=== PATIENT | male | born 1985 | race Caucasian/White ===

== ENCOUNTER 2019-12-23 11:51 | Emergency (ER) | payer SELFPAY ==
[2019-12-23 12:03] VITALS: BP 139/96; PULSE 93; TEMP 98.4; BMI 26.6
[2019-12-23] MEDS ORDERED: DIPHTH,PERTUSS(ACELL),TET 0.5 ML DISP.SYRIN IM ONE ×2 (12:53→19:02)
--- NOTE | 2019-12-23 12:53 | PDOC ---
History of Present Illness - General Chief Complaint: Injury Stated Complaint: LACERATION NOSE History Source: Patient Exam Limitations: No Limitations - History of Present Illness Initial Comments: 12/23/19 12:50 34-year-old male no past medical history here today with injury sustained at work. Patient states he was climbing down a ladder subsequently fell hit his face on the corner of the ladder subsequently sustained a laceration to his right nare patient states happened just prior to arrival bleeding was significant denies hitting his head or LOC tetanus is unknown no other current complaints or injury sustained during his fall Past History - Medical History Allergies/Adverse Reactions: Allergies Allergy/AdvReac Type Severity Reaction Status Date / Time No Known Allergies Allergy Verified 12/23/19 11:58 Home Medications: Ambulatory Orders Cephalexin [Keflex] 500 mg PO TID 5 Days #15 capsule 12/23/19 COPD: No - Psycho-Social/Smoking History Smoking History: Never smoked Have you smoked in the past 12 months: No Information on smoking cessation initiated: No - Substance Abuse Hx (Audit-C & DAST Scrn) How often the patient has a drink containing alcohol: Never Score: In Men: 4 or > Positive; In Women: 3 or > Positive: 0 Screen Result (Pos requires Nsg. Audit-10AR): Negative In the last yr the pt used illegal drug/Rx for NonMed reason: No Score: Yes response is considered Positive: 0 Screen Result (Positive result requires Nsg. DAST-10): Negative Review of Systems - Review of Systems Constitutional: No: Chills, Diaphoresis, Fever HEENTM: No: Eye Pain Respiratory: No: Cough, Orthopnea, Shortness of Breath Cardiac (ROS): No: Chest Pain, Edema Musculoskeletal: No: Back Pain, Gout, Joint Pain Integumentary: No: Bruising, Change in Color Hematologic/Lymphatic: Yes: Other (laceration) *Physical Exam - Vital Signs Last Vital Signs Temp Pulse Resp BP Pulse Ox 98.4 F 93 H 20 139/96 97 12/23/19 11:52 12/23/19 11:52 12/23/19 11:52 12/23/19 11:52 12/23/19 11:52 - Physical Exam 12/23/19 12:51 Awake alert no acute distress examination of the face demonstrates a through and through laceration of the right nasal ala from the base of the nose to the apex does go through and through the nostril bleeding is controlled with pressure remainder of the facial skin is intact no nasal bridge laxity or ecchymosis patient is awake alert and oriented x3 cardiac exam is regular rate and rhythm no murmurs rubs or gallops lungs are clear bilaterally neurologically patient has a GCS of 15 5 out of 5 all 4 extremities Medical Decision Making - Medical Decision Making 12/23/19 12:52 34-year-old male status post laceration to the right nasal ala through and through the nostril due to the complexity of the wound involving nasal cartilage and complete through and through laceration will consult plastic surgery Case discussed with Dr. Mack will see the patient in the ED for definitive repair patient was given tetanus Steri-Strips and dressing applied awaiting plastic surgeon 12/23/19 18:55 pt seen and examined by DR Mack. malik start on keflex 500 tid x 5 days. follow up with dr mack in 5 days. told to call to schedule. bacitracin TID, and leave covered x 48 hours. Discharge - Discharge Information Problems reviewed: Yes Clinical Impression/Diagnosis: Laceration of nose Condition: Improved Disposition: HOME - Admission No - Additional Discharge Information Prescriptions: Cephalexin [Keflex] 500 mg PO TID 5 Days #15 capsule - Follow up/Referral Referrals: Chi Mack MD [Staff Physician] - - Patient Discharge Instructions Patient Printed Discharge Instructions: DI for Laceration Repair Additional Instructions: Keep your nose clean and dry for 48 hours. You may then remove the dressing and wash with mild soap and water apply bacitracin ointment 3 times daily you should take Keflex antibiotic 3 times a day starting tomorrow morning you were given your first dose today here in the ED. You should follow-up with Dr. Mack in 5 days call tomorrow to schedule appointment see referral information for the phone number. Return for any redness swelling or any concerns keep the wound covered especially when outdoors - Post Discharge Activity
[2019-12-23] MEDS ORDERED: LIDOCAINE HCL 2% (20ML MULTI-DOSE VIAL) ONE (18:20)
[2019-12-23] MEDS ORDERED: CEPHALEXIN MONOHYDRATE 500 MG CAPSULE (UD) PO ONE (18:58)
[2019-12-23] MEDS ORDERED: CEPHALEXIN MONOHYDRATE 500 MG CAPSULE (UD) ONE (19:02)
--- NOTE | 2019-12-30 08:59 | OP ---
DATE OF OPERATION: 12/23/2019 PROCEDURE: Full-thickness right nasal alar 3-cm laceration washout and repair. ATTENDING SURGEON: Garrick Perez MD Patient seen at the request of referring physician, Dr. Branch. HISTORY: This is a 34-year-old male who had a laceration, full-thickness, through the right ala involving mucosa of the vestibula skin cartilage and external skin. The patient was brought into the [facility] Emergency Room for further evaluation and treatment. Past medical and surgical history is noncontributory. Review of systems negative except for the above including bleeding, coagulopathy, . PHYSICAL EXAMINATION: Head: As described. Neck: Supple, nontender. Heart: Regular rate and rhythm. Lungs: Clear to auscultation. Abdomen: Soft, nontender. Extremities: Warm and well perfused. Patient was counseled on the risks, benefits, and alternatives to washout and repair of laceration, understood, and agreed to proceed. DESCRIPTION OF PROCEDURE: The wound was draped and prepped in the standard surgical fashion. The wound margins were injected with a total of 4 mL of 1% lidocaine 1:100,000 epinephrine. After which, the wound was copiously irrigated with normals elaine. The internal mucosa was repaired with a series of internal 4-0 chromic gut suture with knots inside the nostril. The cartilage was repaired with a 5-0 Vicryl suture. The skin was then repaired with a series of interrupted 5-0 nylon sutures. The wound was dressed with bacitracin. Wound care instructions were given. The patient was given Keflex, strict elevation, and is to follow up with Dr. Perez in 5-7 days. GARRICK PEREZ M.D. ALEX/[id number]
== END 2019-12-23 19:14 | disposition home or self-care (01) ==
LOC: FER 11:51
PROC: 3E0234Z Introduction of Serum, Toxoid and Vaccine into Muscle, Percutaneous Approach (ICD-10-PCS; principal; 2019-12-23)
DX: S01.21XA Laceration without foreign body of nose, initial encounter (principal)
CPT/HCPCS: 90715; 99284-25

== ENCOUNTER 2024-12-22 13:43 | Emergency (ER) | payer OTHER ==
[2024-12-22 13:52] VITALS: BP 152/100; PULSE 86; RESP 20; TEMP 98; BMI 28.2
[2024-12-22] MEDS ORDERED: DIPHTH,PERTUSS(ACELL),TET 0.5 ML DISP.SYRIN IM ONE (14:25)
[2024-12-22] MEDS ORDERED: ACETAMINOPHEN 500 MG TABLET (FP) ONE (14:25)
[2024-12-22] MEDS: DIPHTH,PERTUSS(ACELL),TET 0.5 ML DISP.SYRIN IM ONE (14:27)
[2024-12-22] MEDS: ACETAMINOPHEN 500 MG TABLET (FP) PO ONE (14:27)
== END 2024-12-22 15:27 | disposition home or self-care (01) ==
LOC: JER 13:43
PROC: 0HQ1XZZ Repair Face Skin, External Approach (ICD-10-PCS; principal; 2024-12-22)
PROC: 3E0234Z Introduction of Serum, Toxoid and Vaccine into Muscle, Percutaneous Approach (ICD-10-PCS; 2024-12-22)
DX: S01.81XA Laceration without foreign body of other part of head, initial encounter (principal); Z23 Encounter for immunization; W20.8XXA Other cause of strike by thrown, projected or falling object, initial encounter; Y99.0 Civilian activity done for income or pay
CPT/HCPCS: 12052; 90471; 90715; 99284-25

== ENCOUNTER 2024-12-29 15:22 | Emergency (ER) | payer SELFPAY ==
[2024-12-29 15:27] VITALS: BP 119/78; PULSE 93; RESP 18; TEMP 98.3; BMI 29.3
== END 2024-12-29 17:11 | disposition home or self-care (01) ==
LOC: JERFT 15:22
DX: Z48.02 Encounter for removal of sutures (principal)
CPT/HCPCS: 99281-25